=== PATIENT | male | born 1995 | race Two or more races ===

== ENCOUNTER 2020-03-09 02:25 | Inpatient (IN) | payer OTHER ==
[~2020-03-09] VITALS: Ht 180.3 cm; Wt 59.0 kg
[2020-03-09 05:05] LABS: Basophils # (auto) 0 10 ^3/uL (0-0.2); Basophils % (auto) 0.2 % (0.0-2.0); Eosinophils # (auto) 0 10 ^3/uL (0-0.8); Hematocrit 33.3 % (41.0-53.0); Hemoglobin 11.7 g/dL (13.5-17.5); Lymphocytes # (auto) 0.4 10 ^3/uL (0.4-5.4); Mean Corpuscular Hemoglobin 30.4 pg (28.0-32.0); Mean Corpuscular Hgb Conc. 35.3 g/dL (32.0-36.0); Mean Corpuscular Volume 86.3 fL (80.0-100.0); Monocytes # (auto) 0.4 10 ^3/uL (0-1.3); Monocytes % (auto) 9.2 % (0.0-12.0); Neutrophils # (auto) 3.2 10 ^3/uL (1.6-8.6); Neutrophils % (auto) 81.6 % (37.0-80.0); Nucleated Red Blood Cells % 0.1 %; Platelet Count (auto) 276 10^3/uL (140-450); Red Blood Cells 3.85 10^6/uL (4.5-5.90); Red Cell Distribution Width 12.9 % (11.8-14.3); White Blood Cell 3.9 10^3/uL (4.4-10.8)
[2020-03-09 05:25] LABS: Albumin 3.2 g/dL (3.4-5.0); BUN/Creatinine Ratio 15.6; Calcium 8.9 mg/dL (8.5-10.1); Potassium 3.7 mmol/L (3.5-5.1)
[2020-03-09 05:27] LABS: Bilirubin, Total 0.4 mg/dL (0.2-1.0); Total Protein 8.8 g/dL (6.4-8.2)
[2020-03-09] MEDS ORDERED: SODIUM CHLORIDE 0.9% 1,000 ML IV ONE (05:45)
[2020-03-09] MEDS ORDERED: ACETAMINOPHEN 325 MG TAB PO ONE (05:45)
[2020-03-09] MEDS ORDERED: ONDANSETRON HCL 4 MG/2 ML VIAL IV ONE (05:45)
[2020-03-09] MEDS ORDERED: ACETAMINOPHEN 650 mg PER 20.3 mL UD PO ONE (05:45)
[2020-03-09] MEDS ORDERED: MORPHINE SULF INJ 2 MG/ML SYRINGE 1ML IV PRN ×4 (09:45→14:30)
[2020-03-09] MEDS ORDERED: NITROGLYCERIN 0.4 MG SL TAB SL PRN ×2 (09:45→14:30)
--- NOTE | 2020-03-09 13:50 | NUR ---
Telemetry admit from ER ANDREINA SHEARER admitted to Telemetry unit after SBAR received. Patient oriented to Norma Smith RN primary RN, unit, room, bed, and unit policies regarding patient care and visiting hours. Patient now on continuous telemetry monitoring, tele box #25 and telemetry reading on arrival to unit is sinus bradycardia 50bpm. Weighed by bedscale and encouraged to call if they need something. All questions and concerns addressed, patient verbalized understanding. Patient alert and oriented x4 at time of admission assessment. Bed is low, locked with 2x side rails up. Call light is within reach. Will continue to monitor Q1hr and PRN.
[2020-03-09 14:28] VITALS: BP 119/79
[2020-03-09] MEDS ORDERED: LORazepam 0.5 MG TAB PO PRN (14:30)
[2020-03-09] MEDS ORDERED: DOCUSATE SOD 100 MG CAP PO PRN (14:30)
[2020-03-09] MEDS ORDERED: MICAFUNGIN SODIUM 100 MG in SODIUM CHL 0.9% 100 ML IV ONE (14:30)
[2020-03-09] MEDS ORDERED: VANCOMYCIN PER PHARMACY 0 MG IV SCH (14:30)
[2020-03-09] MEDS ORDERED: ONDANSETRON HCL 4 MG/2 ML VIAL IV PRN (14:30)
[2020-03-09] MEDS ORDERED: ALUM & MAG HYDROX-SIMETH LIQ(MAALOX) 30 ML PO PRN (14:30)
[2020-03-09] MEDS ORDERED: ACETAMINOPHEN 325 MG TAB PO PRN ×2 (14:30)
[2020-03-09] MEDS ORDERED: ACYCLOVIR 10MG/KG Q8HR PER RX 0 ML IV SCH (14:30)
--- NOTE | 2020-03-09 15:20 | NUR ---
Respiratory note: PT REFUSED ABG. RN AWARE.
[2020-03-09] MEDS: SODIUM CHLORIDE 0.9% 1,000 ML IV SCH (15:32)
[2020-03-09] MEDS: ONDANSETRON HCL 4 MG/2 ML VIAL IV PRN (15:33)
[2020-03-09] MEDS: HYDROcodone-ACET 5/325MG TAB PO PRN ×2 (15:33→19:57)
--- NOTE | 2020-03-09 15:43 | NUR ---
Urine sample Patient aware of MD orders for urine sample. Specimen cup at bedside. Will follow up.
[2020-03-09 15:46] LABS: Cholesterol 177 mg/dL (< 200); HDL Cholesterol 34 mg/dL (40-59); LDL Cholesterol 122 mg/dL (< 100); Triglycerides 107 mg/dL (< 150)
[2020-03-09 16:58] VITALS: BP 120/78
[2020-03-09] MEDS ORDERED: AZITHROMYCIN 250 MG TAB PO SCH (17:00)
[2020-03-09] MEDS: VANCOMYCIN 1GM/250ML 250 ML IV SCH (17:35)
[2020-03-09] MEDS ORDERED: PIPERACILLIN-TAZOB 3.375GM 100 ML IV SCH (18:00)
--- NOTE | 2020-03-09 18:56 | NUR ---
Urine sample Collected and sent to lab via [employer] system by this RN.
--- NOTE | 2020-03-09 19:20 | NUR ---
OPENING SHIFT NOTE Assumed care of patient is alert and oriented, currently on RA with no S/S of distress or SOB noted at this time. Patient complains of generalized pain 7/10, will administer pain medication as ordered. POC discussed with patient, all questions answered and patient verbalized understanding. Bed in lowest position, locked, side rials up x2. Call light within reach, patient encouraged to call for assistance as needed. Will continue to monitor PRN/Q1hr.
[2020-03-09 20:31] LABS: Urine Amorphous Crystal FEW /hpf (None Seen); Urine Bacteria NONE SEEN /hpf (None Seen); Urine Blood Negative /uL (Negative); Urine Mucus FEW (None Seen); Urine Specific Gravity 1.019 (1.001-1.035); Urine WBC 6 /hpf (0 - 3)
[2020-03-09 20:42] LABS: Alcohol, Urine < 3.0 mg/dL (0-10); Amphetamine Screen, Urine NEGATIVE (NEGATIVE); Barbiturate Scree,Urine NEGATIVE (NEGATIVE); Benzodiazephine Screen, Urine NEGATIVE (NEGATIVE); Cannabinoid Screen, Urine POSITIVE (NEGATIVE); Cocaine Screen, Urine NEGATIVE (NEGATIVE); Opiate Scree,Urine NEGATIVE (NEGATIVE); Phencyclidine Screen, Urine NEGATIVE (NEGATIVE)
[2020-03-09] MEDS: SODIUM CHL 0.9% IV SCH (21:56)
[2020-03-09] MEDS: ACYCLOVIR SOD IV SCH (21:56)
[2020-03-09 22:00] VITALS: BP 118/69
[2020-03-10] MEDS: VANCOMYCIN 1GM/250ML 250 ML IV SCH ×3 (00:58→19:18)
[2020-03-10] MEDS: ONDANSETRON HCL 4 MG/2 ML VIAL IV PRN (01:38)
--- NOTE | 2020-03-10 01:38 | NUR ---
PATIENT HAD EPISODE OF NAUSEA AND VOMITING, STATES "HE HASN'T BEEN ABLE TO KEEP ANYTHING DOWN WITHOUT VOMITING FOR 2 WEEKS". MEDICATED WITH ZOFRAN ENCOURAGED FLUIDS. WILL CONTINUE TO MONITOR.
[2020-03-10] MEDS: PIPERACILLIN-TAZOB 3.375GM 100 ML IV SCH ×4 (02:00→20:19)
[2020-03-10] MEDS: SODIUM CHLORIDE 0.9% 1,000 ML IV SCH ×2 (04:20→17:40)
[2020-03-10 05:06] LABS: RPR Non Reactive (Non Reactive)
[2020-03-10 05:45] VITALS: BP 119/73
[2020-03-10] MEDS: ACYCLOVIR SOD IV SCH ×3 (06:54→22:57)
[2020-03-10] MEDS: SODIUM CHL 0.9% IV SCH ×3 (06:54→22:57)
--- NOTE | 2020-03-10 07:19 | NUR ---
CAR ENDORSED TO KWABENA CARLIN
--- NOTE | 2020-03-10 07:30 | NUR ---
Opening Shift Note Assumed care of patient, awake and alert. Respirations are even and unlabored. No S/S of distress/SOB or pain. Bed is low, locked with 2x side rails up. Call light is within reach. Instructed on POC and to call for assist PRN, will continue to monitor for changes Q1hr and PRN.
[2020-03-10 08:55] VITALS: BP 124/63
--- NOTE | 2020-03-10 09:42 | NUR ---
IV insertion IV access obtained, via clean sterile technique by inserting a 22 gauge catheter at the left FA. No trauma to site. Patient tolerated well.
[2020-03-10] MEDS: HYDROcodone-ACET 5/325MG TAB PO PRN ×2 (09:46→20:19)
[2020-03-10] MEDS: SULFAMETHOX W/TRIMETH(800/160MG) DS TAB PO SCH (09:46)
[2020-03-10] MEDS ORDERED: AZITHROMYCIN 250 MG TAB PO SCH (10:00)
[2020-03-10] MEDS: MICAFUNGIN SODIUM 100 MG in SODIUM CHL 0.9% 100 ML IV SCH (10:57)
--- NOTE | 2020-03-10 11:19 | NUR ---
IV removed, IV insertion, Patient self removed 18 gauge IV from the right AC, per patient he accidently pulled it out when he was going to the bathroom. IV access obtained, via clean sterile technique by inserting 22 gauge catheter at right hand after 2 attempts. IV secured properly. No trauma to site. Patient tolerated well. Addendum: 03/11/20 at 0137 by Inez Obrien RN Time was actually 23:19 at time of new IV insertion.
[2020-03-10 12:44] VITALS: BP 124/72
--- NOTE | 2020-03-10 15:04 | NUR ---
Nutrition Assessment/Consult Notes Please refer to link for full assessment notes. Est Energy needs: 0458-0922 kcals (28-30 kcal/kgBW) d/t pt is underweight with HIV Est Protein needs: 55-77 gms/day (1.0-1.4 gm/kgBW) d/t pt is with HIV Will continue to monitor and reassess prn. Addendum: 03/10/20 at [address] Amended: Links added.
[2020-03-10 16:50] VITALS: BP 126/73
--- NOTE | 2020-03-10 17:49 | NUR ---
Vanco Trough Lab is running behind on lab draws. 1600 Vancomycin trough lab has not been drawn. Per pharmacy and medication protocol, this nurse is to wait for Vanco trough level before administering medication. Spoke to pharmacy regarding 1700 dose being late. Per pharmacist endorse 1700 Vancomycin to upcoming nurse. Do not non-admin this medication. Per pharmacy, give 1700 Vancomycin dose late if applicable and pharmacy will reschedule medication time tomorrow.
--- NOTE | 2020-03-10 19:15 | NUR ---
Opening Shift Note Assumed care of patient after receiving report from eric, RN. Patient is awake and alert with no S/S of distress, SOB or pain noted at this time. Call light within reach, bed in lowest, locked position x2 side rails up for safety. Instructed on POC and to call for assist PRN, will continue to monitor for changes Q1hr and PRN.
--- NOTE | 2020-03-10 20:19 | NUR ---
Pain, headache Patient complains of headache 10/10. PRN Durbin given per patient request. PRN Durbin for moderate pain 4-6. Will reassess and continue to monitor.
[2020-03-10 22:00] VITALS: BP 139/79
[2020-03-10] MEDS ORDERED: ACYCLOVIR SOD 50MG/ML 500 MG in D5W 5% 100 ML IV SCH (22:00)
[2020-03-11] MEDS: VANCOMYCIN 1GM/250ML 250 ML IV SCH ×4 (02:06→20:00)
[2020-03-11] MEDS: PIPERACILLIN-TAZOB 3.375GM 100 ML IV SCH ×4 (02:07→20:06)
[2020-03-11] MEDS: ONDANSETRON HCL 4 MG/2 ML VIAL IV PRN ×3 (02:10→18:26)
--- NOTE | 2020-03-11 02:10 | NUR ---
Nausea Patient stated he had nausea with minimal emesis. Patient medicated with PRN Zofran for nausea and vomiting. Will reassess and continue to monitor.
--- NOTE | 2020-03-11 02:24 | NUR ---
Patient fall At approximately 00:42, moderate amount of blood was found on floor by bathroom with additional smears of blood leading to patient bed. Patient was found to have blood on lips and in mouth and resting in bed. Patient stated he had fallen about 5 minutes prior when he was in the bathroom. Patient stated he tripped and fell forward when he hit his mouth on the floor. Post fall vitals: BP 137/89, HR 61, OX 98%, Temp 98.4, RR 18, Pain 0/10. Hospitalist was paged at 01:03. Patient transferred with all belongings from 250-B to room 220-A. At 01:16, received call back from hospitalist SANDRA Manzanares, received order for STAT CT scan of Head and Neck. Order was read back, verified, and input. Called Radiology department and asked to bring patient down. 01:36 patient was taken down to radiology via wheelchair by RN. 01:59 Patient back in room, complete linen change performed, patient back in bed resting comfortably with no s/s of SOB, pain, or distress noted. Bed alarm on for safety.
[2020-03-11 05:00] VITALS: BP 128/77
--- NOTE | 2020-03-11 06:27 | NUR ---
Scheduled 06:00 medication Zovirax not available. Called pharmacy, no answer. Instructed by PBX to try again in 10 minutes.
[2020-03-11] MEDS: SODIUM CHL 0.9% IV SCH ×2 (07:00→16:21)
[2020-03-11] MEDS: ACYCLOVIR SOD IV SCH ×2 (07:00→16:21)
[2020-03-11] MEDS: SODIUM CHLORIDE 0.9% 1,000 ML IV SCH ×2 (07:01→20:20)
--- NOTE | 2020-03-11 07:15 | NUR ---
Opening Shift Note Assumed care of patient, awake and alert. Respirations are even and unlabored. No S/S of distress/SOB or pain. Bed is low, locked with 2x side rails up. Call light is within reach. Bed alarm is on for safety. Instructed on POC and to call for assist PRN, will continue to monitor for changes Q1hr and PRN.
[2020-03-11] MEDS: HYDROcodone-ACET 5/325MG TAB PO PRN ×2 (07:32→18:26)
[2020-03-11 08:30] VITALS: BP 132/87
[2020-03-11] MEDS: SULFAMETHOX W/TRIMETH(800/160MG) DS TAB PO SCH (09:16)
[2020-03-11] MEDS: MICAFUNGIN SODIUM 100 MG in SODIUM CHL 0.9% 100 ML IV SCH (09:59)
--- NOTE | 2020-03-11 10:39 | NUR ---
Dr. Kirkpatrick rounding At bedside discussing POC with patient. No new orders received.
--- NOTE | 2020-03-11 10:40 | NUR ---
Infectious disease consult Informed Dr. Kirkpatrick that infectious disease consult is still pending. Per. Dr. Kirkpatrick, infectious disease doctor (Dr. Sykes) does not see patient's with this insurance.
[2020-03-11 12:11] VITALS: BP 130/80
[2020-03-11 16:37] VITALS: BP 121/76
--- NOTE | 2020-03-11 19:00 | NUR ---
Opening Shift Note Assumed care of patient, awake and alert. No S/S of distress/SOB or pain. Instructed on POC and to call for assist PRN, will continue to monitor for changes Q1hr and PRN.
[2020-03-11] MEDS ORDERED: LORazepam 2MG/ML-1ML VIAL IV PRN (20:00)
[2020-03-11 20:57] LABS: INR 1.17 (0.9-1.15)
[2020-03-11 22:00] VITALS: BP 119/71
[2020-03-12] MEDS: SODIUM CHL 0.9% IV SCH ×3 (00:05→23:12)
[2020-03-12] MEDS: ACYCLOVIR SOD IV SCH ×3 (00:05→23:12)
[2020-03-12] MEDS: PIPERACILLIN-TAZOB 3.375GM 100 ML IV SCH ×2 (02:00→08:05)
[2020-03-12 02:19] LABS: Basophils # (auto) 0 10 ^3/uL (0-0.2); Basophils % (auto) 0.8 % (0.0-2.0); Eosinophils # (auto) 0 10 ^3/uL (0-0.8); Eosinophils % (auto) 0.4 % (0.0-7.0); Hematocrit 37.7 % (41.0-53.0); Hemoglobin 12.8 g/dL (13.5-17.5); Lymphocytes # (auto) 0.2 10 ^3/uL (0.4-5.4); Mean Corpuscular Hemoglobin 29.8 pg (28.0-32.0); Mean Corpuscular Hgb Conc. 33.9 g/dL (32.0-36.0); Mean Corpuscular Volume 87.7 fL (80.0-100.0); Monocytes # (auto) 0.4 10 ^3/uL (0-1.3); Monocytes % (auto) 9.3 % (0.0-12.0); Neutrophils % (auto) 84.5 % (37.0-80.0); Platelet Count (auto) 203 10^3/uL (140-450); Red Cell Distribution Width 13.4 % (11.8-14.3); White Blood Cell 4.7 10^3/uL (4.4-10.8)
[2020-03-12] MEDS: HYDROcodone-ACET 5/325MG TAB PO PRN (02:35)
[2020-03-12 02:37] LABS: Albumin 2.6 g/dL (3.4-5.0); BUN/Creatinine Ratio 6.4; Calcium 8.1 mg/dL (8.5-10.1)
[2020-03-12 02:40] LABS: Bilirubin, Total 0.6 mg/dL (0.2-1.0); Potassium 2.8 mmol/L (3.5-5.1); Total Protein 7.1 g/dL (6.4-8.2)
--- NOTE | 2020-03-12 03:00 | NUR ---
Paged doctor Grimes with the critical potassium of 2.8
[2020-03-12] MEDS: VANCOMYCIN 1GM/250ML 250 ML IV SCH ×2 (03:13→09:00)
--- NOTE | 2020-03-12 03:20 | NUR ---
Received potassium 40 meq rider order.
--- NOTE | 2020-03-12 04:00 | NUR ---
Left IV infiltrated. R IV Pulled accidentally out. Will insert other IVs
[2020-03-12] MEDS: POTASSIUM CHL 20MEQ/100ML 100 ML IV SCH ×3 (04:07→10:37)
[2020-03-12 05:00] VITALS: BP 141/65
--- NOTE | 2020-03-12 06:00 | NUR ---
IV insertion IV access obtained, via clean sterile technique by inserting 22 gauge catheter at [RLower FA after 1 attempt. IV secured properly. No trauma to site. Patient tolerated procedure well.
--- NOTE | 2020-03-12 06:15 | NUR ---
IV insertion IV access obtained, via clean sterile technique by inserting 22 gauge catheter at upper FA after 1 attempt. IV secured properly. No trauma to site. Patient tolerated well.
[2020-03-12 08:35] VITALS: BP 146/84
--- NOTE | 2020-03-12 10:15 | NUR ---
AT BEDSIDE DR NG AT BEDSIDE ROUNDING ON PATIENT. PATIENT EXTENSIVELY COUNSELED ON IMPORTANCE OF MEDICATION REGIMEN ADHERENCE AND SAFE SOCIAL PRACTICES. PATIENT VERBALIZED UNDERSTANDING. WILL CONTINUE CARE
[2020-03-12] MEDS ORDERED: POTASSIUM CHL 20MEQ/100ML 100 ML IV ONE ×2 (10:29→20:30)
[2020-03-12] MEDS: SODIUM CHLORIDE 0.9% 1,000 ML IV SCH ×2 (10:37→23:13)
[2020-03-12] MEDS: SULFAMETHOX W/TRIMETH(800/160MG) DS TAB PO SCH (10:37)
[2020-03-12] MEDS ORDERED: GADOTERIDOL 279.3mg/mL 20ml Vial IV ONE (11:30)
[2020-03-12] MEDS ORDERED: POTASSIUM CHL 20 Meq TABLET PO ONE (12:15)
--- NOTE | 2020-03-12 12:15 | NUR ---
MENTAL STATUS PATIENT FOUND TO HAVE PULLED IV OUT OF HIS ARM. PATIENT IS NOW ALTERED, SPEECH IS EXTREMELY DELAYED. SAFETY PRECAUTIONS REMAIN IN PLACE. DR NG NOTIFIED OF CHANGE IN MENTAL STATUS. CONTINUE CURRENT PLAN OF CARE.
--- NOTE | 2020-03-12 12:46 | NUR ---
I called [facility] Brander Eliane [phone] ext [phone] and left message regarding need to transfer patient to higher level of care-asking for contracted facilities as well as authorization.
[2020-03-12 12:54] VITALS: BP 144/95
--- NOTE | 2020-03-12 12:56 | NUR ---
I called [facility] Quality Reviewer Crissy [phone] ext [phone] and left message regarding need to transfer patient to higher level of care.
[2020-03-12 13:35] LABS: Folate (Folic Acid) 10.83 ng/mL (5.38-24)
--- NOTE | 2020-03-12 14:08 | NUR ---
I faxed higher level of care request to [facility], [facility], [place] and [facility].
--- NOTE | 2020-03-12 15:00 | NUR ---
SEIZURE-LIKE ACTIVITY WHILE SPEAKING TO PATIENT HE BECAME NONRESPONSIVE TO VERBAL OR PAINFUL STIMULI. PATIENT'S BACK BECAME ARCHED, ARMS CONTRACTED, AND HE HAD AN INVOLUNTARY RELEASE OF BLADDER CONTENTS. VS: 157/106, PULSE 67, RR 18, O2 100% ON RA. PATIENT APPEARS TO BE IN POSTICTAL PHASE AFTER EPISODE AND REMAINS ALTERED, SLOW TO RESPOND, AND HAS FLACCID MUSCLE TONE. PAGED FOR CHANGE IN STATUS. AWAITING CALL BACK, WILL CONTINUE CLOSE MONITORING.
--- NOTE | 2020-03-12 15:10 | NUR ---
MEDICATION HELD PO POTASSIUM HELD D/T PATIENT'S CHANGE IN MENTAL STATUS. MD NOTIFIED.
--- NOTE | 2020-03-12 15:20 | NUR ---
SPOKE WITH MD RECEIVED CALL BACK FROM DR NG. NEW ORDERS RECEIVED, WILL CARRY OUT AND CONTINUE CARE.
[2020-03-12] MEDS ORDERED: LORazepam 2MG/ML-1ML VIAL IV ONE (15:30)
--- NOTE | 2020-03-12 15:33 | NUR ---
I spoke with [facility] Shock Absorption Floor Layer Kathleen [phone] regarding the order to transfer to higher level of care. Kathleen is asking if this can be done as an outpatient. I spoke with Dr. Verduzco and he said this can not be done as an outpatient due to patient's change in mental status. I relayed this information to Shock Absorption Floor Layer Kathelen-I also requested the name and phone number of her medical records director for Dr. Verduzco to speak with. Per Kathleen, he is still reviewing the case and she will follow back up with me tomorrow regarding the request-I relayed this information to Dr. Verduzco.
--- NOTE | 2020-03-12 15:45 | NUR ---
BRAIN MRI PATIENT MEDICATED WITH IV ATIVAN AND TAKEN DOWN TO MRI VIA GURNEY WITHOUT INCIDENT.
--- NOTE | 2020-03-12 16:30 | NUR ---
MENTAL STATUS PATIENT IS NOW RESPONSIVE TO VERBAL STIMULI AND IS RESPONDING TO QUESTIONS. PATIENT DOES NOT REMEMBER WHY HE IS HERE OR ANYTHING OF THE PREVIOUS DAYS, WHEREAS EARLIER HE WAS A&OX4. PATIENT STATES THE LAST THING HE REMEMBERS IS "PLAYING PLAY-MG WITH HIS BROTHER." REPEAT BLOOD PRESSURE IS 144/91. DR NG NOTIFIED, NO NEW ORDERS RECEIVED. WILL CONTINUE CARE.
[2020-03-12 16:57] VITALS: BP 144/91
[2020-03-12 18:00] LABS: Hepatitis A Ab IgM Negative; Hepatitis B Core IgM Negative
[2020-03-12] MEDS ORDERED: LORazepam 2MG/ML-1ML VIAL IV PRN (18:00)
[2020-03-12 18:01] LABS: Hepatitis B Surface Antigen Negative (Negative); Hepatitis C Antibody Negative (Negative)
[2020-03-12] MEDS ORDERED: ACYCLOVIR 10MG/KG Q8HR PER RX 0 ML IV SCH (18:45)
--- NOTE | 2020-03-12 18:50 | NUR ---
MENTAL STATUS WHILE ROUNDING ON PATIENT, HE WAS FOUND SOILED AND UNRESPONSIVE. NO RESPONSE TO STERNAL RUB OR CORNEAL REFLEX. PUPILS ARE NON-RESPONSIVE TO LIGHT. PATIENT IS HAVING MORE SEIZURE-LIKE ACTIVITY. BP 155/101, HR 110, 02 98% ON RA. PAGED. AWAITING CALL BACK.
--- NOTE | 2020-03-12 19:05 | NUR ---
SPOKE WITH MDS SPOKE WITH DR NG REGARDING PATIENT'S STATUS. THIS NURSE WAS ADVISED TO "CALL A RAPID RESPONSE". DR FALLON AT BEDSIDE WITNESSING SEIZURES. ORDERS FOR ATIVAN Q5MIN FOR SEIZURE ACTIVITY RECEIVED. CODE ASSIST CALLED.
[2020-03-12] MEDS: LORazepam 2MG/ML-1ML VIAL IV PRN ×2 (19:10→19:35)
--- NOTE | 2020-03-12 19:15 | NUR ---
CODE ASSIST CODE ASSIST CALLED AFTER CONTINUOUS SEIZURE ACTIVITY. WITH SANDRA MCCARTHY AT BEDSIDE X2 1MG ATIVAN IV GIVEN FOR SEIZURE ACTIVITY. NO POSITIVE RESPONSE NOTED. PATIENT PLACED ON NON-REBREATHER AND CRASH CART AT BEDSIDE. PATIENT HOOKED UP TO DEFIBRILLATOR AND CONTINUOUS PULSE OX. PER SANDRA MCCARTHY, KEEP PATIENT ON FLOOR AND ADMINISTER 1500MG IVPB ALEKS FALLON ORDERED TO SEE IF THERE IS IMPROVEMENT IN PATIENT STATUS. WILL CONTINUE CARE AND CARRY OUT ORDERS.
--- NOTE | 2020-03-12 19:20 | NUR ---
ABG RESULTS RECEIVED RESULTS FOR ABG FROM RT. PO2 IS CRITICALLY HIGH, PATIENT TO BE TAKEN OFF NON-REBREATHER AND PLACED ON 2LNC. TASK CARRIED OUT BY THIS RN. WILL CONTINUE TO MONITOR.
--- NOTE | 2020-03-12 19:30 | NUR ---
SEIZURES PATIENT IS HAVING SEIZURE-LIKE ACTIVITY EVERY MINUTE. PATIENT IS NOT COMING OUT OF POSTICTAL PHASE INBETWEEN EPISODES. ORDERS TO UPGRADE TO [facility] RECEIVED FROM DR FALLON. WILL CARRY OUT.
--- NOTE | 2020-03-12 19:37 | NUR ---
Respiratory note: CRITICAL ABG RESULTS REPORTED TO RN, MESSAGE LEFT FOR PAPETERIE TABLE ASSEMBLER АНДРЕЙ. INFORMED RN TO PLACE PT BACK ON 2L NC. WILL CONTINUE TO MONITOR.
--- NOTE | 2020-03-12 19:50 | NUR ---
HAND OFF REPORT CARE OF PATIENT ENDORSED TO COBY CARLIN.
--- NOTE | 2020-03-12 20:15 | NUR ---
After receiving Keppra pt is getting more relaxed. Vitals stable,O2sat 97%, still unconscious.
--- NOTE | 2020-03-12 20:30 | NUR ---
IV insertion IV access obtained, via clean sterile technique by inserting 20 gauge catheter at LFA after 1 attempt. IV secured properly. No trauma to site. Patient tolerated procedure well.
[2020-03-12] MEDS ORDERED: LINEZOLID 600MG/300ML 300 ML IV SCH (22:00)
[2020-03-12] MEDS: MEROPENEM 1GM IVPB 100 ML IV SCH (22:18)
[2020-03-12 22:35] VITALS: BP 154/57
[2020-03-13] VITALS (9 sets, daily range): BP systolic 123–147; BP diastolic 91–101
[2020-03-13] MEDS: SODIUM CHL 0.9% IV SCH ×3 (05:45→22:00)
[2020-03-13] MEDS: ACYCLOVIR SOD IV SCH ×3 (05:45→22:00)
[2020-03-13] MEDS: MEROPENEM 1GM IVPB 100 ML IV SCH ×4 (05:46→18:22)
[2020-03-13 05:56] LABS: Basophils # (auto) 0 10 ^3/uL (0-0.2); Basophils % (auto) 0.1 % (0.0-2.0); Eosinophils # (auto) 0 10 ^3/uL (0-0.8); Eosinophils % (auto) 0.1 % (0.0-7.0); Hemoglobin 12.4 g/dL (13.5-17.5); Lymphocytes # (auto) 0.5 10 ^3/uL (0.4-5.4); Lymphocytes % (auto) 6.4 % (10.0-50.0); Mean Corpuscular Hemoglobin 30.1 pg (28.0-32.0); Mean Corpuscular Hgb Conc. 34.4 g/dL (32.0-36.0); Mean Corpuscular Volume 87.5 fL (80.0-100.0); Monocytes # (auto) 0.6 10 ^3/uL (0-1.3); Neutrophils # (auto) 6.2 10 ^3/uL (1.6-8.6); Neutrophils % (auto) 85.4 % (37.0-80.0); Nucleated Red Blood Cells % 0.1 %; Platelet Count (auto) 190 10^3/uL (140-450); Red Blood Cells 4.11 10^6/uL (4.5-5.90); Red Cell Distribution Width 13.2 % (11.8-14.3); White Blood Cell 7.3 10^3/uL (4.4-10.8)
[2020-03-13 06:07] LABS: INR 1.13 (0.9-1.15); Partial Thromboplastin Time 26.2 sec (23.0-31.2)
[2020-03-13 06:16] LABS: Potassium 3.4 mmol/L (3.5-5.1)
[2020-03-13 06:27] LABS: Albumin 2.9 g/dL (3.4-5.0); BUN/Creatinine Ratio 3.8; Bilirubin, Total 0.5 mg/dL (0.2-1.0); Calcium 8.6 mg/dL (8.5-10.1); Magnesium 2.2 mg/dL (1.6-2.6); Phosphorus 3.3 mg/dL (2.5-4.90)
--- NOTE | 2020-03-13 06:30 | NUR ---
Pt did not urinate since 1999 last night. Bladder scan result of 830 ml. Tried unsuccessfully to weak up the pt to urinate.
--- NOTE | 2020-03-13 06:45 | NUR ---
Called warehouse checker to ask about the [facility] transfer Also informed about pt not voiding during the night and blader scan result of 830 ml. Per warehouse checker the transfer should be done after 0700 and the receiving nurse is Elida. Pt should be waked up and motivate to urinate.
--- NOTE | 2020-03-13 07:40 | NUR ---
Pt not alert and oriented. Vitals stable T 97.8 HR 98, BP 128/92, Spo2 96% Otransferred to [facility] Gave report to Josie.
--- NOTE | 2020-03-13 08:00 | NUR ---
ANDREINA SHEARER received to [facility] via hospital bed on cardiac rn. Patient transferred to bed, [facility] See interventions for complete assessment. Bed locked on low position, side rails up x2, bed alarms on at all times, will continue to monitor patient.
--- NOTE | 2020-03-13 08:51 | NUR ---
Received call from patient's brother All, who's able to provide password. Updated on patient's status and POC. All questions and concerns addressed.
[2020-03-13] MEDS: LINEZOLID 600MG/300ML 300 ML IV SCH ×3 (09:03→22:32)
--- NOTE | 2020-03-13 09:07 | NUR ---
I called [facility] Composition Instructor Kathleen [phone] and made her aware of patient's change of condition/upgraded to [facility] status-MD still requesting transfer to higher level of care-I requested a list of their contracted facilities as well as authorization for transportation. I requested that she call me back NAI.
[2020-03-13] MEDS: SULFAMETHOX W/TRIMETH(800/160MG) DS TAB PO SCH (10:00)
--- NOTE | 2020-03-13 10:17 | NUR ---
I called [facility] Door Assembler Kathleen [phone] extension [phone] regarding continued need to transfer to higher level of care request. Per Kathleen this patient's hospital stay has been denied. I requested the name and phone number of her medical receptionist for my MD to speak with. Per Kathleen this case is not assigned to her-I asked her who this case was assigned to-she wasn't able to tell me. I let her know patient had been upgraded to [facility] status last night after having seizures and becoming unresponsive. I let her know that it doesn't matter who case is assigned to, I need her to assist me in the transfer to higher level of care or let me know who can assist in that process. Dr. Verduzco also spoke with Kathleen on the phone regarding continued need to transfer to higher level of care. Per Kathleen-higher level of care order needs to be faxed to [phone]. Faxed transfer to higher level of care faxed to requested number along with updated clinical information.
--- NOTE | 2020-03-13 11:07 | NUR ---
Dr Verduzco at bedside, updated on patient's status. Patient seen and examined. Will carry out new orders.
[2020-03-13] MEDS ORDERED: LORazepam 2MG/ML-1ML VIAL IV PRN (11:15)
--- NOTE | 2020-03-13 11:52 | NUR ---
1150 03/13/20 I received a call from [facility] Care Provider Kathleen letting me know that her electrician supervisor substation is working on the higher level of care request at this time and that I should be receiving a call back shortly with an update. Per Kathleen, the denial for inpatient stay has been overturned, inpatient stay is authorized. I called Dr. Verduzco to give him an update on the status of the transfer.
--- NOTE | 2020-03-13 12:32 | NUR ---
Pt is currently not able to participate in SS assessment due to seizures and confusion. Contacted mother but no answer to call. Pt will need to be reassessed once medically stable and is closer to discharge. Pt will be followed up for appropriate intervention of SS concerns/ needs. Addendum: 03/13/20 at 1234 by EN RODAS SS Amended: Links added.
--- NOTE | 2020-03-13 12:45 | NUR ---
Patient's mother and brother All at bedside, updated on patient's status and POC. Questions and concerns addressed.
--- NOTE | 2020-03-13 12:55 | NUR ---
Nutrition Followup Note Wt 59.9kg Pt was awake but not alert at time of rounds. Pt was transferred to [facility] following seizure activity. Pt is awaiting transfer to higher level of care. Pt is currently with a regular diet with sporadic and poor po intake per Rn note. Consider max assist feed if pt able to tolerate po, consider alternate nutrition if pt unable to consume po intake. Est Energy needs: 1944-9134 kcals (28-30 kcal/kgBW) d/t pt is underweight with HIV Est Protein needs: 55-77 gms/day (1.0-1.4 gm/kgBW) d/t pt is with HIV Will continue to monitor and reassess prn. Labs: Bun 4L, Alb 2.9L BM: Pt with 2 BMs 03/13 per Rn note Skin: Bs 18 mod risk, full details in early breastfeeding care specialist note PES: 1) Inadequate oral intake r/t pt with a poor appetite aeb pt with 10% PO intake 2) Underweight r/t energy intake is less than energy needs aeb BMI of 16.9 kg/m2 Comments Will continue to monitor PO status, skin status, pertinent labs and weight trends. Will f/u in 3-5 days 1) Continue to closely monitor pt PO intake to meet at least 75% of meals 2) If pt appetite continues to be poor, consider nutrition supplement Ensure Enlive 1 ctn TID 3) Continue current plan of care Expected Outcomes/Goals: Pt appetite to improve Pt to gain weight
--- NOTE | 2020-03-13 13:49 | NUR ---
5443 03/13/20 I called [facility] Instructional Material Director Ktahleen (no return call yet regarding transfer). Per Kathleen her supervisor powdered metal Betsy is still reviewing the request. I asked Kathleen for Betsy's contact [phone] extension [phone]. I called provided number and was re-directed to call [phone]. I called provided number and left message for supervisor powdered metal Betsy at [facility] letting her know that I have been trying to transfer this patient for the last 2 days-I need to know which facilities I can reach out to and I need authorization for facility and transportation
--- NOTE | 2020-03-13 14:16 | NUR ---
1410 03/13/20 I received a call from [facility] Food And Beverage Server Betsy asking me exactly why patient needs to be transferred to higher level of care. I requested that she provide me with the name/number of her medical chemist so I can give it to Dr. Verduzco to discuss the transfer request. Betsy unwilling to provided me with requested information. I provided her with contact information for Dr. Verduzco and requested that she call him regarding the transfer request.
[2020-03-13] MEDS: FLUCONAZOLE 200MG/100ML 100 ML IV SCH ×2 (14:29→16:14)
[2020-03-13] MEDS: SODIUM CHLORIDE 0.9% 1,000 ML IV SCH (14:30)
--- NOTE | 2020-03-13 14:44 | NUR ---
3386 03/13/20 I spoke with [facility] Executive Asst Betsy and she said I can reach out to [facility]. I requested authorization for facility and transportation, she said once they accept she will provide that. I called [facility] and spoke with Diane, she said that our MD has to call their infectious disease MD Dr. Santiago [phone] and their hospitalist to accept [phone] then she can look for a bed. Per Dr. Verduzco he called [facility] and Dr. Teri Saenz is accepting.
--- NOTE | 2020-03-13 15:00 | NUR ---
MRSA swab sent to lab
--- NOTE | 2020-03-13 15:30 | NUR ---
Patient accidentally pulled out RT foreram IV. Attempted to obtain another IV, via clean sterile technique by inserting 22 gauge catheter at LT foreram, 2 failed attempts.
--- NOTE | 2020-03-13 15:35 | NUR ---
1530 03/13/20 I spoke with Betsy at [facility]-she said she will call [facility] and provide them with authorization. Per Betsy for transportation we need to call their provider "[facility]" [phone]-I called and spoke with Nel, she said to call back when patient is ready to go-it can not be set up ahead of time.
--- NOTE | 2020-03-13 16:19 | NUR ---
Ashley Contreras was advised we must have acceptance from ID physician, the current doctor is Dr. Santiago . Advised Dr Verduzco of MD contact info.
--- NOTE | 2020-03-13 16:20 | NUR ---
Spoke with Dr. Verduzco ID physician Dr. Santiago is accepting this patient. Called Diane at [facility] advised the ID MD is accepting, Diane advises that she now must email her leadership who has final approval of transfers. If member is approved they will place patient on list and once a bed is available they will notify CM. Provided contact info and to have PBX page oncall GALO.
--- NOTE | 2020-03-13 17:30 | NUR ---
Received call from Ian stating patient's EEG will be done tomorrow.
--- NOTE | 2020-03-13 17:38 | NUR ---
1738 03/13/20 - Received a call from Monica at [facility] transfer center, who stated patient has been assigned to bed 7325 and report can be called to [phone]. I contacted "[facility]" at [phone] to set up transportation for patient. Pending setting up of transportation. Informed nurse KVR of information as stated above.
[2020-03-13] MEDS ORDERED: POTASSIUM CHLORIDE 20 MEQ, LIDOCAINE 1% (LOCAL ANESTH.) 2 ML in SODIUM CHL 0.9% 100 ML IV ONE (18:00)
--- NOTE | 2020-03-13 19:00 | NUR ---
1900 03/13/20 - Contacted by " [facility]" ambulance dept who stated do not yet have an ETA for p/u of patient. Still pending a vendor. "[facility] can be reached at [phone] (ask for ambulance dept) the reservation number is [phone].
--- NOTE | 2020-03-13 19:06 | NUR ---
Received call from Kassi of [facility] stating that they cannot set up transport because there is no authorization for transport. Indoor Sports Centre Manager Kristi jordan.
--- NOTE | 2020-03-13 19:44 | NUR ---
Awaiting K rider with lidocaine, spoke to Danae Crabtree.
--- NOTE | 2020-03-13 20:54 | NUR ---
204903/13/20 - Contacted [facility] medical senior safety management consultant at [phone], requesting authorization for transportation. Per Kassi at [facility], authorization required due to patient out of area. Spoke with Rosio who provided me with authorization [id number] after several calls back and forth to "[facility]". I provided [facility] contact information for '[facility]'' to contact unit with ETA and vendor, the reservation number from '[facility]' is [phone]. Pending vendor and ETA. Informed document management consultant nurse of above information.
--- NOTE | 2020-03-14 00:08 | NUR ---
BASED ON THE LAST ETA ANOUNCED TO BE 0040, THE UNIT AT [facility] [place] WAS CALLED AND REPORT ON PT'S CONDITION GIVEN TO ANDREAS, THE RN ASSIGNED TO THIS PATIENT. AT 0005 RECEIVED CALL THAT ETA WAS CANCELLED AND AND OTHER ETA COULD NOT BE CONFIRMED AT THIS TIME, TO BE LATER ANNOUNCED.
[2020-03-14 00:09] VITALS: BP 142/107
--- NOTE | 2020-03-14 00:42 | NUR ---
AT 0030 THE TRANSPORTATION TEAM COMES TO THRU THE DOOR , REPORT GIVEN TO THE RN, PT INFORMED OF THE TRANSFER TO ANOTHER HOSPITAL. PATIENT IS MOVED TO THE [facility], ALL THE BELONGINGS SENT WITH THE PATIENT. PT'S BROTHER NOTIFIED OF PT'S DEPARTURE TO [facility] AT 0037.
[2020-03-14 01:06] VITALS: BP 142/107
== END 2020-03-14 00:40 | disposition short-term general hospital (02) | DRG 892 ==
LOC: ER 02:25 → TELE 02:26 → TELE-EAST 13:39 → TELE-CENTR 03-11 02:02 → DOU IN ICU 03-13 07:58
PROVIDERS: ADMIT Hospitalist; ATTEND Internal Medicine
DX: B20 Human immunodeficiency virus [HIV] disease (principal); R64 Cachexia; E87.1 Hypo-osmolality and hyponatremia; N39.0 Urinary tract infection, site not specified; E44.1 Mild protein-calorie malnutrition; E11.9 Type 2 diabetes mellitus without complications; D63.8 Anemia in other chronic diseases classified elsewhere; Z20.828 Contact with and (suspected) exposure to other viral communicable diseases; F12.90 Cannabis use, unspecified, uncomplicated; G40.401 Other generalized epilepsy and epileptic syndromes, not intractable, with status epilepticus; Z79.899 Other long term (current) drug therapy; Z91.19 Patient's noncompliance with other medical treatment and regimen; Z68.1 Body mass index [BMI] 19.9 or less, adult; A41.9 Sepsis, unspecified organism
CPT/HCPCS: 36415; 36600; 70450; 70553; 71045; 72125; 80053; 80061; 80074; 80202; 80307; 81001; 82140; 82550; 82607; 82746; 82805; 82962; 83036; 83605; 83735; 84100; 84439; 84443; 84484; 85025; 85610; 85730; 86360; 86592; 86641; 87040; 87081; 87086; 87426; 93005; G0378; J1450; J2001; J2185; J2248; J2405; J2543; J3480; J7060